=== PATIENT | female | born 1975 | race Caucasian/White ===

== ENCOUNTER → 2020-08-03 | Outpatient (CLI) | payer OTHER ==
[~2020-08-03] MED LIST: ADULT LOW DOSE81 MG PO; AMOXIL 875 MG875 M1 PO; BRINTELLIX10 MG PO; CIPRODEX OTIC7.5 ML OTIC; DIAZEPAM 2MG TAB2 MG PO; FLONASE 0.05%50 MCG NASAL; IBUPROFEN 800800 M1 PO; LOSARTAN POTAS100 MG PO; PERCOCET 5-3251 EACH PO; PHENERGAN 25 MG25 M1 PO; PROAIR HFA8.5 GM INH; PROPRANOLOL 4040 M1 PO; SUPRAX400 MG PO; TRAMADOL 50 MG50 MG PO
== END ==
LOC: MRI 07-27 11:38 → ULTRA 10:35
PROVIDERS: ATTEND Family Medicine
DX: R10.9 Unspecified abdominal pain (principal)